=== PATIENT | male | born 1955 | race Caucasian/White ===

== ENCOUNTER 2018-07-28 14:22 | Emergency (ER) ==
[2018-07-28 14:26] VITALS: BP 182/96; TEMP 99.5; BMI 25.1
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
--- NOTE | 2018-07-28 18:20 | CT ---
EXAM: CT lumbar spine without intravenous contrast 07/28/2018. Sagittal and coronal reformatted adebayo ges obtained HISTORY: Pain. Trauma COMPARISON: 12/24/2013 FINDINGS: Normal anatomic alignment is maintained. Vertebral bodies appear intact without evidence of acute fracture. The facet joints align normally. There is multilevel chronic degenerate disc dis ease. There has been interval development of new adjacent end plate defects at the left aspect of the L2-L3 level. Disc space narrowing at the left aspect of L2-L3 has worsened. There are sclerotic degenerat monica endplate changes. This appears chronic however is new since the 2013 exam. Small end plate defe cts at L5-S1 appears stable. There is no evidence of acute fracture or subluxation. Multilevel posterior disc bulge flattening the thecal sac. IMPRESSION: 1. There is no evidence of acute fracture. 2. Scoliotic curvature of the lumbar spine with convexity to the right. This appears stable. 3. Multilevel chronic degenerative disc disease. Chronic degenerative endplate changes. This has w orsened at the left aspect of L2-L3 as discussed above.
== END 2018-07-28 19:25 | disposition home or self-care (01) ==
LOC: ED 14:22
DX: S39.012A Strain of muscle, fascia and tendon of lower back, initial encounter (principal); S16.1XXA Strain of muscle, fascia and tendon at neck level, initial encounter; S29.012A Strain of muscle and tendon of back wall of thorax, initial encounter; V09.9XXA Pedestrian injured in unspecified transport accident, initial encounter; Y92.524 Gas station as the place of occurrence of the external cause; F17.210 Nicotine dependence, cigarettes, uncomplicated
CPT/HCPCS: 80306; 81001; 99283